=== PATIENT | male | born 1995 ===

== ENCOUNTER 2021-09-28 12:08 | Emergency (ER) | payer SELFPAY ==
--- NOTE | 2021-09-28 14:29 | Emergency Department Report ---
ED Psych HPI - General Chief Complaint: Psych Stated Complaint: SI Time Seen by Provider: 09/28/21 13:49 Source: patient Mode of arrival: Ambulatory Limitations: No Limitations - History of Present Illness Initial Comments: Chief complaint: "I want help." HPI: This is a 25-year-old male history of PTSD and polysubstance abuse who presents with suicidal ideation and desire for detox. In June, he was recently released from incarceration after 4 years of imprisonment. He is a significant arguments and verbal altercations with his female sql ssrs developer. He has had severe anxiety and depression. Last night he stated that he wanted to . He does not have a plan to harm himself. His staff command and control officer gave him a 1800 hotline. Hotline advocate encouraged him to go to the emergency department. He uses marijuana Percocet neck to see to self medicate. He did not take any prescribed medications while incarcerated. He will be on parole for 2 years. MD Complaint: suicidal ideation, feels depressed -: days(s) (For the past 4 months since released from incarceration) Associated Psychiatric Symptoms: depression, suicidal ideation History of same: Yes Quality: constant Improves With: none Worsens With: none Context: recent drug abuse, significant life stressor Associated Symptoms: denies other symptoms Treatments Prior to Arrival: other (Spoke with hotline advocate) If Self Harm: admits thoughts of - Related Data Previous Rx's Medication Instructions Recorded Last Taken Type Quetiapine Fumarate [SEROquel] 50 mg PO QHS 30 Days #30 tab 09/29/21 Unknown Rx Allergies Allergy/AdvReac Type Severity Reaction Status Date / Time No Known Allergies Allergy Verified 09/28/21 12:14 ED Review of Systems ROS: Stated complaint: SI Other details as noted in HPI Comment: All other systems reviewed and negative Constitutional: denies: chills, fever, malaise Respiratory: denies: cough, shortness of breath Cardiovascular: denies: chest pain Psychiatric: anxiety, depression ED Past Medical Hx - Past Medical History Previous Medical History?: Yes Hx Psychiatric Treatment: Yes (PTSD) - Surgical History Past Surgical History?: No - Social History Smoking Status: Current Every Day Smoker Substance Use Type: Marijuana, Prescribed, Other (Ecstasy) - Medications Home Medications: Home Medications Medication Instructions Recorded Confirmed Last Taken Type Quetiapine Fumarate [SEROquel] 50 mg PO QHS 30 Days #30 tab 09/29/21 Unknown Rx ED Physical Exam - General Limitations: No Limitations General appearance: alert, in no apparent distress - Head Head exam: Present: atraumatic, normocephalic - Eye Eye exam: Present: normal appearance - ENT ENT exam: Present: mucous membranes moist - Neck Neck exam: Present: normal inspection, full ROM - Respiratory Respiratory exam: Present: normal lung sounds bilaterally. Absent: respiratory distress, wheezes, rales, rhonchi - Cardiovascular Cardiovascular Exam: Present: regular rate, normal rhythm, normal heart sounds. Absent: systolic murmur, diastolic murmur, rubs, gallop - GI/Abdominal GI/Abdominal exam: Present: soft, normal bowel sounds. Absent: distended, tenderness, guarding, rebound - Rectal Rectal exam: Present: deferred - Extremities Exam Extremities exam: Present: normal inspection - Neurological Exam Neurological exam: Present: alert, oriented X3 - Psychiatric Psychiatric exam: Present: normal affect, depressed - Skin Skin exam: Present: warm, dry, intact, normal color. Absent: rash ED Course Vital Signs 09/28/21 09/28/21 09/28/21 12:14 16:17 20:36 Temperature 98.1 F 98.0 F 98.0 F Pulse Rate 82 80 80 Respiratory 16 18 18 Rate Blood Pressure 122/71 126/72 126/72 [Left] O2 Sat by Pulse 97 98 98 Oximetry ED Medical Decision Making - Lab Data Result diagrams: 09/28/21 14:25 09/28/21 14:25 - EKG Data 09/28/21 14:30 EKG obtained 1417 EKG interpreted by me Ventricular paced paced rhythm rate 80 bpm widened QRS no significant ST elevation nonischemic T wave pattern - Medical Decision Making Ms. Chester is a 25-year-old male with history of PTSD and polysubstance abuse who presents with suicidal ideation. He is medically clear for psychiatric care. Awaiting treatment recommendations by psychiatry team. CBC chemistry serum toxicology all unremarkable. 1013 rescinded by psychiatric team. I agree with disposition. Patient prescribed Seroquel by psychiatry team. Urine toxicology positive for marijuana, urinalysis reviewed suspect balanitis. No need for UTI treatment. Critical care attestation.: If time is entered above; I have spent that time in minutes in the direct care of this critically ill patient, excluding procedure time. ED Disposition Clinical Impression: PTSD (post-traumatic stress disorder), Polysubstance abuse, Bipolar disorder Disposition: 01 HOME / SELF CARE / HOMELESS Is pt being admited?: No Does the pt Need Aspirin: No Condition: Stable Instructions: Managing Post-Traumatic Stress Disorder, Managing Bipolar Disorder Additional Instructions: In case of an emergency, please contact the following numbers: [place] Crisis and Access Line: Number: Crisis Text Line: (Text START) Number: 310278 Suicide Prevention Line: Number: Emergency Number: 911 SUBSTANCE ABUSE PROGRAMS: [facility]: Location: [place], [place] [facility] Address: [address] [place] [address] [facility] Recovery: Address: [address] [place] [address] [facility]: Address: [address] [place] [address] [facility] Community: Address: [address] [place] [address] [facility] Address: [address] [place] [address]. Please contact above numbers to attempt placement into free based program. Medicaid Programs: [facility]: Address: [address] [place] [id number] [facility]: Address: [address] [place] [id number] Prescriptions: Quetiapine Fumarate [SEROquel] 50 mg PO QHS 30 Days #30 tab
[2021-09-28 14:46] LABS: Basophils # (Auto) 0.1 K/mm3 (0.0-0.1); Basophils % (Auto) 1.1 % (0.0-1.8); Eosinophils # (Auto) 0.5 K/mm3 (0.0-0.4); Eosinophils % (Auto) 6.5 % (0.0-4.3); Hematocrit 43.6 % (35.5-45.6); Hemoglobin 14.2 gm/dl (11.8-15.2); Lymphocytes # (Auto) 2.9 K/mm3 (1.2-5.4); Lymphocytes % (Auto) 40.4 % (13.4-35.0); Mean Corpuscular HGB Conc 33 % (32-34); Mean Corpuscular Volume 84 fl (84-94); Monocytes # (Auto) 0.8 K/mm3 (0.0-0.8); Monocytes % (Auto) 10.7 % (0.0-7.3); Platelet Count 226 K/mm3 (140-440); Red Blood Count 5.22 M/mm3 (3.65-5.03); Red Cell Distribution Width 14.9 % (13.2-15.2)
[2021-09-28 15:05] LABS: BUN/Creatinine Ratio 21; Blood Urea Nitrogen 17 mg/dL (9-20); Calcium 8.6 mg/dL (8.4-10.2); Hemolysis Index 8
[2021-09-28 20:26] VITALS: BP 126/72
[2021-09-28 22:42] LABS: Bacteria,Urine 1+ /HPF (Negative); Bilirubin,Urine NEG (Negative); Blood,Urine NEG (Negative); Color,Urine Yellow (Yellow); Mucus,Urine 1+ /HPF; Protein,Urine <15 mg/dL mg/dL (Negative)
[2021-09-28 22:48] LABS: Amphetamine Screen,Urine Negative; Benzodiazepines Screen,Urine Negative; Cocaine Screen,Urine Negative; Methadone Screen,Urine Negative; Opiate Screen,Urine Negative
[2021-09-28 23:00] LABS: Cannabinoid Screen,Urine Positive
[2021-09-28] MEDS ORDERED: HALOPERIDOL LACTATE 5 MG/1 ML INJ ONE (23:20)
[2021-09-28] MEDS ORDERED: diphenhydrAMINE 50 MG/ML VIAL ONE (23:25)
[2021-09-28] MEDS ORDERED: diphenhydrAMINE 50 MG/ML VIAL IV ONE (23:34)
[2021-09-28] MEDS ORDERED: HALOPERIDOL LACTATE 5 MG/1 ML INJ IM ONE (23:34)
--- NOTE | 2021-09-28 23:46 | Event Note ---
Date: 09/28/21 25-year-old male was brought in due to concern for suicidal ideation and anxiety depression. He was seen by my colleague who put in for mental health consult. Apparently the mental health consult was never done and I was asked to come see the patient to determine whether he is ready for discharge. The patient is with extremely pressured speech and is both circumferential and tangential. He states that last night he had a "bipolar episode" during which he told his girlfriend that he wanted to kill himself. He is actively pacing around during the assessment. He says he feels better now and wants to go to detox. When I tried to discuss with him concerns he immediately became angry and aggressive started yelling and screaming. I feel that this patient is displaying signs and symptoms of acute bipolar ladonna with psychosis and therefore I have signed a 1013 order. I have also ordered IM Haldol and Benadryl given that he is very a ggressive and I feel that he is a threat to both himself and other staff. He will be evaluated by the psychiatry/mental health team in the morning.
--- NOTE | 2021-09-29 09:58 | Consultation ---
History of Present Illness - Reason for Consult Consult date: 09/29/21 Reason for consult: mental health evaluation - History of Present Psychiatric Illness ED Note: This is a 25-year-old male history of PTSD and polysubstance abuse who presents with suicidal ideation and desire for detox. In June, he was recently released from incarceration after 4 years of imprisonment. He is a significant arguments and verbal altercations with his female aircraft rigging and controls mechanic. He has had severe anxiety and depression. Last night he stated that he wanted to . He does not have a plan to harm himself. His community liaison officer gave him a 1800 hotline. Hotline advocate encouraged him to go to the emergency department. He uses marijuana Percocet neck to see to self medicate. The patient is a 25 year old male with history of Bipolar, PTSD, ADHD, Polysubstance abuse who presents to the ED for suicidal ideation. In my interview with the patient, he is alert and orient x3. The patient reports noncompliance with psychotropic medications. He states he started using marijuana, percocet and alcohol about 3 years ago. He reports that he got into an argument with his girl friend yesterday after using drugs and she said " you need help. " The patient states he is agreeable to detoxing but states he wants to do it on his own. The patient denies any current suicidal/homicidal ideation and denies hallucinations. PAST PSYCHIATRIC HISTORY Diagnoses: Bipolar, PTSD, ADHD, Polysubstance abuse Suicide attempts or Self-harm behavior: "over 10" Prior psychiatric hospitalizations: Yes Substance Abuse history: meth Previous psychiatric medications tried: [place], seroquel, neurontin Outpatient treatment: yes PAST MEDICAL HISTORY: None reported Family Psychiatric History: None reported or documented SOCIAL HISTORY Marital Status: single Living Arrangements: Lives with andrew carty Employment Status: Unemployed Access to guns/weapons: Denies Education: high school graduate History of Abuse: Denies Legal History: None reported REVIEW OF SYSTEMS Constitutional: Negative for weight loss ENT: Negative for stridor Respiratory: Negative for cough or hemoptysis All other systems reviewed and are negative MENTAL STATUS EXAMINATION General Appearance and Behavior: Age appropriate, good hygiene, not wearing appropriate clothes, good eye contact, cooperative polite with questioning. Cooperation: Participating/engaged Psychomotor Behavior: Psychomotor normal Mood: "Ok" Affect and affective range: Congruent with stated mood Thought Process: goal directed Thought Content: None Speech: normal tone and pace Suicidal Ideation: Denies Homicidal Ideation: Denies HI Hallucinations: Denies Delusions: None elicited Impulse Control: Limited Insight and Judgment: Limited insight and fair judgment Memory: Normal Attention: Normal Orientation: Alert, oriented, Assessment and Plan Bipolar Disorder, Current Episode Depressed Noncompliance with other medical treatment and regimen Polysubstance abuse Treatment [id number] Restart home meds Start Seroquel 50mg po QHS Medical: Per primary Sitter: Defer to priamary Disposition: Do not recommend acute inpatient treatment. Home Security Alarm Installer will provide patient with psychiatric outpatient resources. Will sign off Medications and Allergies Medications and Allergies Allergies Allergy/AdvReac Type Severity Reaction Status Date / Time No Known Allergies Allergy Verified 09/28/21 12:14 Home Medications Medication Instructions Recorded Confirmed Last Taken Type Quetiapine Fumarate [SEROquel] 50 mg PO QHS 30 Days #30 tab 09/29/21 Unknown Rx Mental Status Exam - Vital signs Last Vital Signs Temp 98.0 F 09/28/21 20:36 Pulse 80 09/28/21 20:36 Resp 18 09/28/21 20:36 BP 126/72 09/28/21 20:36 Pulse Ox 98 09/28/21 20:36 Results Result Diagrams: 09/28/21 14:25 09/28/21 14:25 Abnormal lab results 09/28/21 09/28/21 09/28/21 Range/Units 14:25 14:25 14:25 RBC 5.22 H (3.65-5.03) M/mm3 MCH 27 L (28-32) pg Lymph % (Auto) 40.4 H (13.4-35.0) % [place] % (Auto) 10.7 H (0.0-7.3) % Eos % (Auto) 6.5 H (0.0-4.3) % Eos # (Auto) 0.5 H (0.0-0.4) K/mm3 Urine WBC (Auto) (0.0-6.0) /HPF Salicylates < 0.3 L (2.8-20.0) mg/dL Acetaminophen 5.0 L (10.0-30.0) ug/mL 09/28/21 Range/Units Unknown RBC (3.65-5.03) M/mm3 MCH (28-32) pg Lymph % (Auto) (13.4-35.0) % [place] % (Auto) (0.0-7.3) % Eos % (Auto) (0.0-4.3) % Eos # (Auto) (0.0-0.4) K/mm3 Urine WBC (Auto) 18.0 H (0.0-6.0) /HPF Salicylates (2.8-20.0) mg/dL Acetaminophen (10.0-30.0) ug/mL All other labs normal.
== END 2021-09-29 10:31 | disposition home or self-care (01) ==
LOC: ED 12:08
DX: F43.10 Post-traumatic stress disorder, unspecified (principal); F17.200 Nicotine dependence, unspecified, uncomplicated; F12.10 Cannabis abuse, uncomplicated; F19.10 Other psychoactive substance abuse, uncomplicated; F31.9 Bipolar disorder, unspecified; Z20.822 Contact with and (suspected) exposure to COVID-19
CPT/HCPCS: 36415; 80048; 80307; 81001; 85025; 87086; 96372; 96374; 99284; J1200; J1630; U0003; 80320; G0480